=== PATIENT | female | born 1960 | race Caucasian/White ===

== ENCOUNTER → 2020-08-14 08:20 | Outpatient (CLI) | payer BC ==
--- NOTE | 2020-08-15 20:10 | ST ---
PATIENT:WEN BURNS MEDICAL RECORD: [id number] SEX: F LOCATION:[facility] ORDER #: ADMISSION DATE: 08/14/20 AGE OF PATIENT: 59 REFERRING PHYSICIAN: INTERPRETING PHYSICIAN: KELVIN PATTERSON MD DATE OF SERVICE: 08/14/2020 NUCLEAR STRESS TEST GATED: Gated is normal with normal wall motion. Normal EF. Calculated EF 85%. SPECT IMAGING: SPECT imaging was performed. 1. Short axis view: Short axis view shows good uptake along the lateral wall, anterior wall, and inferior wall. 2. Horizontal axis: Horizontal axis confirms good uptake along the anterior wall and inferior wall. 3. Vertical axis: Vertical axis shows good uptake along the lateral wall and septum. FINAL IMPRESSION: 1. Normal gated, normal wall motion, normal EF 85%. 2. Normal SPECT imaging. This scan is felt to be at low risk for any significant myocardial ischemia or previous myocardial infarction. LV function is normal. Continue medical management. Risk factor modification is recommended. TRANSINT:[id number] Voice Confirmation ID: [id number] DOCUMENT ID: [id number] KELVIN PATTERSON MD at 2009 CC: [id number] DICTATION DATE: 08/14/20 162 HEAD START DIRECTOR: 08/15/20 0146 DEP CLI 08/14/20 [id number] [place] [address]
== END | disposition home or self-care (01) ==
LOC: D.HCCARDIO 08:20
PROVIDERS: ATTEND Internal Medicine Interventional Cardiology
DX: R06.09 Other forms of dyspnea (principal)